=== PATIENT | male | born 1960 | race Caucasian/White ===

== ENCOUNTER 2016-11-11 06:07 | Day surgery (SDC) | payer OTHER ==
[~2016-11-11] VITALS: Ht 167.6 cm; Wt 73.8 kg
[2016-11-11 07:05] VITALS: Ht 167.6 cm; Wt 73.8 kg
[2016-11-11] MEDS ORDERED: ATOR40TA68 PO (07:16)
[2016-11-11] MEDS ORDERED: TAMS-14 PO (07:16)
[2016-11-11] MEDS ORDERED: IBUPROFEN (07:16)
[2016-11-11] MEDS ORDERED: OMEPRAZOLE (07:16)
[2016-11-11 07:27] VITALS: BP 113/72; PULSE 68; RESP 16
[2016-11-11] MEDS ORDERED: MIDAZOLAM 1 MG/ML 2 ML INJ ONE (08:27)
[2016-11-11] MEDS ORDERED: FENTAnyl 50 MCG/ML VIAL ONE (08:27)
[2016-11-11 08:49] VITALS: BP 110/75; RESP 20
--- NOTE | 2016-11-11 08:51 | GILP ---
DATE OF PROCEDURE: NAME OF PROCEDURES: 1. Esophagogastroduodenoscopy and biopsy. 2. Colonoscopy and biopsy. SURGEON: Sherley Patel MD. PREOPERATIVE DIAGNOSIS: 1. Positive occult blood in stool. 2. Upper abdominal pain. 3. Chronic heartburn. POSTOPERATIVE DIAGNOSES: 1. Gastroesophageal reflux disease. 2. Gastritis with erosions. 3. Small gastric ulcer near the cardia of the stomach. 4. Biopsies were taken for histopathology and Helicobacter pylori test. 5. Colonoscopy all the way to the cecum. 6. Three small colon polyps, 2 from the transverse colon and 1 from the sigmoid were removed using the biopsy forceps. 7. Internal hemorrhoids. INDICATION FOR THE PROCEDURE: Mr. Darell Carter is a 56-year-old male patient who was note d to have positive occult blood in stool. He also had upper abdominal pain and chronic heartburn, n ot responding to therapy, so the patient was scheduled for endoscopy and colonoscopy for further magali luation. The procedures and possible complications were well explained to the patient. The patient understoo d and consented to the procedure. DESCRIPTION OF PROCEDURE: Under the influence of fentanyl and Versed, the gastroscope was carefully introduced into the esophagus and under direct vision, it was advanced to the stomach and through t he pylorus into the duodenal bulb and descending duodenum. FINDINGS: ESOPHAGUS: The patient had gastroesophageal reflux disease. STOMACH: He had gastritis with erosions. The patient also had a superficial ulcer near the cardia of the stomach. Biopsies were taken for histopathology as well as for H. pylori test. DUODENUM: Normal. The colonoscope was carefully introduced in the rectum and under direct vision, it was advanced all the way to the cecum. FINDINGS: The patient had 2 small polyps, 2 in the transverse colon and 1 in the sigmoid, and they were removed using the biopsy forceps. He was noted to have internal hemorrhoids. He tolerated the procedures very well and there was no complication from the procedures. At the end of the procedures, he was awake with stable vital signs, and he was discharged home to the care of his family. IMPRESSION: Please see postoperative diagnosis. PLAN: 1. Continue omeprazole. 2. Add Zantac 300 mg p.o. at bedtime. 3. Await histopathology reports. 4. Next screening colonoscopy in 5 years. Dictated By: SHERLEY RAZO/NOHEMY Conf#: [id number] [facility]#: [id number]
== END 2016-11-11 10:34 | disposition home or self-care (01) ==
LOC: GIL 06:07
PROVIDERS: ATTEND Internal Medicine Gastroenterology
DX: K92.1 Melena (principal); K29.50 Unspecified chronic gastritis without bleeding; D12.3 Benign neoplasm of transverse colon
CPT/HCPCS: 43239; 45380; 87081; 88305; 88312; J2250; J3010; Z7610

== ENCOUNTER 2017-03-18 12:36 | Emergency (ER) | payer OTHER ==
[~2017-03-18] VITALS: Wt 68.2 kg
[~2017-03-18 12:36] MED LIST: ATOR40TA68 PO; IBUPROFEN; OMEPRAZOLE; TAMS-14 PO
--- NOTE | 2017-03-18 18:07 | ERA ---
ER Documentation Chief Complaint Date/Time DATE: 03/18/17 TIME: 17:54 Chief Complaint took medication yest developed dizziness, n/v, shakiness HPI 56-year-old male with a history of hyperlipidemia, BPH, and GERD presents one day after being started on atorvastatin and tamsulosin by PCP with a chief complaint of nausea without vomiting and dizziness. Symptoms started shortly after lunch when he took the medications. No current symptoms. Patient symptoms started 1-2 hours after taking the medications yesterday afternoon. Other medications include omeprazole. Patient is also complaining of foreign body sensation in throat. Onset 1 day. Denies dysphagia, pharyngitis, odynophagia, shortness of breath, difficulty breathing, coughing, regurgitation, similar symptoms in past. No history of foreign body aspiration. Patient denies fever, vomiting, abdominal pain, polyuria, polydipsia, aggravating or alleviating factors, sick contacts, or similar symptoms in the past. No recent travel. Patient has no other complaints and describes no other associated manifestations. Nursing notes have been reviewed and are consistent with history given. ROS All systems reviewed and are negative except as per history of present illness. Medications Home Meds Reported Medications [Ibuprofen] No Conflict Check 11/11/16 Tamsulosin Hcl* (Flomax*) 0.4 Mg Cap.er.24h, 0.4 MG PO DAILY, CAP 11/11/16 Atorvastatin* (Atorvastatin*) 40 Mg Tablet, 40 MG PO QHS, #30 TAB 11/11/16 [Omeprazole] No Conflict Check 11/11/16 Allergies Allergies: Coded Allergies: No Known Drug Allergies (Verified Allergy, Unknown, 11/11/16) PMhx/Soc History of Surgery: Yes (RT. CHEECK CYST REMOVED) Anesthesia Reaction: No Hx Neurological Disorder: No Hx Respiratory Disorders: No Hx Cardiac Disorders: No Hx Psychiatric Problems: No Hx Miscellaneous Medical Probl: Yes (HIGH CHOLESTEROL) Hx Alcohol Use: Yes Hx Substance Use: No Hx Tobacco Use: No Physical Exam Vitals Vital Signs Date Time Temp Pulse Resp B/P Pulse Ox O2 Delivery O2 Flow Rate FiO2 03/18/17 13:05 98.2 96 20 113/70 98 Physical Exam Const: Well-appearing. No acute distress. Head: Normocephalic, Atraumatic. Eyes: Non-injected; No discharge. No nystagmus. EOMI and JORGE bilaterally. Ears: Normal External Ears, EACs clear, TM normal bilaterally without erythema. Nose: Normal external nose; no discharge, or sinus tenderness. Oral: No oral edema visualized. Mucous membranes moist and pink. No foreign body visualized. Neck: Clear to auscultation. No bruits. No cervical lymphadenopathy, or masses palpated. Supple ~ No meningismus. Pulm: Good air movement in upper and lower respiratory tracts. Clear to auscultation bilaterally. No dyspnea or stridor. Cardio: Regular rate and rhythm; No murmurs, gallops or rubs auscultated. Radial pulses 2+ bilaterally. No cyanosis noted. Capillary refill less than 2 seconds. Abd: Normal bowel sounds. Soft, non tender in all quadrants, non distended. MS: Normal motor strength, normal tone with gross examination. Skin: No petechiae or rashes. Good turgor. Ext: No edema. Normal movement of all extremities grossly observed. Neur: Neurovascularly intact bilaterally. Psych: Normal Mood and Affect. Procedures/MDM 56-year-old male presenting with a chief complaints of dizziness, nausea, and a foreign body sensation in throat 1 day as described in the history and physical examination. Plain films were obtained of the soft tissue neck and lungs given the following impression: Unremarkable. At this time I very little suspicion for foreign body or other airway obstructive pathologies. Dizziness and nausea most likely secondary to new medications started 1 day ago. I talked to the patient about taking tamsulosin at night to avoid possible side effect of dizziness. Have suggested calling a PCP for further instructions. No current dizziness. Did not drive. I have low suspicion for intracranial pathology, serious bacterial infection, or acute cardiovascular abnormalities. Most likely diagnoses is foreign body sensation and throat of unknown etiology, and dizziness/nausea of unknown etiology. I have spoke with the patient regarding their condition and future management including the necessity to return to emergency department if airway obstructive symptoms continue, change, or worsen. I have also reviewed the chest x-ray findings with him as well as gave him a printout of the results. I have spoken to my attending Dr. Geller who agrees with the assessment and plan. They have verbally responded that they understand their status and treatment plan. The patients vitals are stable , tolerates p.o., and their current condition is appropriate for discharge. The patient will be given discharge instructions with return precautions. 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 Departure Diagnosis: Primary Impression: Nausea Additional Impression: Dizziness Condition: Stable Patient Instructions: Atorvastatin Calcium Oral tablet, Tamsulosin Hydrochloride Oral capsule Additional Instructions: Jose L un seguimiento con padron PCP dentro de los prximos 1-3 gamble para gardenia evaluaci n ms completa y gardenia posible derivacin a un especialista. Devuelva el departamento de emergencia inmediatamente si los sntomas empeoran o camb[place]. Si tiene alguna pregunta con respecto a los medicamentos, consulte con padron farmac utico o con nosotros antes de salir. Si se producen reacciones adversas mientras aric rey medicamentos, suspenda el tratamiento y regrese inmediatamente al servicio de urgencias. [place] rye medicamentos segn las indicaciones y complete el curso completo del tratamiento. MICA CONTI PA-C Mar 18, 2017 18:04
--- NOTE | 2017-03-18 18:50 | RADRPT ---
PROCEDURE: Chest 2 views. CLINICAL INDICATION: Shortness of breath. Possible foreign body. TECHNIQUE: PA and lateral views of the chest were obtained. COMPARISON: None. FINDINGS: The cardiomediastinal silhouette is within normal limits. No consolidations are identified. No pne umothorax is seen. 10 mm nodular density is identified over the right lower lobe. Osseous structure s are intact. IMPRESSION: No visualized radiopaque foreign body. Please note that certain materials such as wood are radioluc ent on x-ray. If there is clinical suspicion for foreign body, further characterization with CT yandel uld be considered. 10 mm nodular density over the right lower lobe. This could reflect nipple shadow versus lung nodule . Further characterization with a repeat exam containing nipple markers or with CT is recommended. RPTAT: AA .Reddy Leslie MD, MD Date Time Electronically viewed and signed by .Reddy Leslie MD, MD on 03/18/2017 18:50 .P/
--- NOTE | 2017-03-18 18:50 | RADRPT ---
PROCEDURE: Soft tissue neck radiograph CLINICAL INDICATION: Concern for foreign body. COMPARISON: None relevant listed. TECHNIQUE: Frontal and lateral radiograph of the neck soft tissues. FINDINGS: The visualized airway is patent. No prevertebral soft tissue swelling. No retained foreign body identified. No fracture or subluxation of the cervical spine. Mild degenerative disc space narrowing and endplate spurring between C4-C5 and C6-C7. IMPRESSION: No radiopaque foreign body identified. RPTAT: AA Physician Sandrita Date Time Electronically viewed and signed by Physician Sandrita on 03/18/2017 18:50 LG/
[2017-03-18 19:13] VITALS: BP 111/72; PULSE 76; RESP 18; TEMP 97.3
[2017-03-18] MEDS ORDERED: ONDANSETRON (ODT) 4 MG TAB ODT STA (19:41)
[2017-03-18] MEDS ORDERED: ONDA4TAB14 PO (19:42)
== END 2017-03-18 19:46 | disposition home or self-care (01) ==
LOC: FTE 12:36
DX: R11.0 Nausea (principal)
CPT/HCPCS: 70360; 71020; Z7502; Z7610